=== PATIENT | female | born 1965 | race Caucasian/White ===

== ENCOUNTER 2016-10-03 08:00 | Outpatient (RCR) | payer BC ==
[~2016-10-03 08:00] MED LIST: AMITRIPTYLINE H50 M1 PO; MICARDIS 40MG40 MG PO; PROZAC PO; ZOCOR 20MG20 MG PO
== END 2016-11-06 09:43 | disposition home or self-care (01) ==
LOC: MKS.ESL.PT 08:00
DX: M54.2 Cervicalgia (principal); M54.12 Radiculopathy, cervical region; R26.81 Unsteadiness on feet

== ENCOUNTER 2021-09-06 14:15 | Outpatient (RCR) | payer BC | END 2021-09-09 | disposition home or self-care (01) | LOC: WSC | DX: M51.36 Other intervertebral disc degeneration, lumbar region (principal); M43.13 Spondylolisthesis, cervicothoracic region; M48.02 Spinal stenosis, cervical region; Z98.1 Arthrodesis status ==

== ENCOUNTER 2021-09-20 11:15 | Outpatient (RCR) | payer BC | END 2021-09-24 10:23 | disposition home or self-care (01) | LOC: WSPT 11:15 | DX: M51.36 Other intervertebral disc degeneration, lumbar region (principal); M43.13 Spondylolisthesis, cervicothoracic region; M48.02 Spinal stenosis, cervical region; Z98.1 Arthrodesis status ==